=== PATIENT | male | born 1960 | race African-American/Black ===

== ENCOUNTER 2017-02-26 12:36 | Inpatient (IN) | payer MEDICAID ==
[~2017-02-26] VITALS: Ht 175.3 cm; Wt 60.8 kg
--- NOTE | 2017-02-26 12:49 | NUR ---
Patient transferred to bed 7 via wheelchair by tech. RN evaluating patient at bedside.
[2017-02-26 12:54] VITALS: BP 136/104
--- NOTE | 2017-02-26 13:12 | NUR ---
57/M BIB SISTER C/O N/V & ABD PAIN X 2 DAYS. HX OF DIVERTICOLITIS & REPAIR HERNIA & COLOSTOMY 2 WK AGO [place] . AAOX4 WITH EVEN AND UNSTEADY GAIT, AMBULATED WITH CANE; LUNGS CLEAR BL; PT DENIES ANY FEVER, CP, SOB, OR COUGH AT THIS TIME; PATIENT STATES PAIN OF 0/10 AT THIS TIME; PATIENT POSITIONED FOR COMFORT; HOB ELEVATED; BEDRAILS UP X2; BED DOWN. ER MD MADE AWARE OF PT STATUS.
--- NOTE | 2017-02-26 13:12 | NUR ---
Note undone in [facility] - 02/26/17 at 1534 by [email or web address] 57/M LEANN STOKES C/O N/V & ABD PAIN X 2 DAYS. HX COLOSTOMY . AAOX4 WITH EVEN AND STEADY GAIT; LUNGS CLEAR BL; HR EVEN AND REGULAR; PT DENIES ANY FEVER, CP, SOB, OR COUGH AT THIS TIME; PATIENT STATES PAIN OF 0/10 AT THIS TIME; VSS; PATIENT POSITIONED FOR COMFORT; HOB ELEVATED; BEDRAILS UP X2; BED DOWN. JOANNE HAWKINS MADE AWARE OF PT STATUS. Addendum: 02/26/17 at 1410 by [email or web address] Amendment undone in [facility] 02/26/17 at 1534 by [email or web address] PT HAS ABD SURGERY WITH COLOSTOMY X 2 WKS AGO
[2017-02-26] MEDS ORDERED: ONDANSETRON 4 MG/2 ML VIAL IVP ONE (13:20)
--- NOTE | 2017-02-26 13:20 | NUR ---
PT C/O ABD PAIN & N/V . NOTIFIED DR JOSEPH.
--- NOTE | 2017-02-26 13:29 | NUR ---
Patient being evaluated by DR JOSEPH at bedside.
--- NOTE | 2017-02-26 13:30 | NUR ---
Dr. Campos evaluating patient at bedside.
[2017-02-26] MEDS ORDERED: METOCLOPRAMIDE 10 MG/2 ML INJ VIAL IVP ONE (13:35)
[2017-02-26] MEDS ORDERED: NACL 0.9% 1,000 ML IV ONE ×2 (13:35→16:55)
--- NOTE | 2017-02-26 13:39 | NUR ---
EKG AT BEDSIDE.
--- NOTE | 2017-02-26 13:40 | NUR ---
LAB AT BEDSIDE
--- NOTE | 2017-02-26 13:44 | NUR ---
Dr. Campos re-evaluating patient at bedside.
[2017-02-26] MEDS ORDERED: MORPHINE SULFATE 4 MG/ML SYR IVP ONE ×2 (13:45→16:55)
--- NOTE | 2017-02-26 14:07 | NUR ---
PT TO CT VIA SG ACCOMPANIED BY EXPLOSIVE ORDNANCE TECHNICIAN
--- NOTE | 2017-02-26 14:07 | NUR ---
PT TAKEN TO CT VIA GUISABELLA,ACCOMPANIED BY [employer]ER [employer].
[2017-02-26 14:16] LABS: BASOPHILS # (AUTO) 0.2 K/uL (0.00-0.22); BASOPHILS % (AUTO) 2.3 % (0.0-2.0); EOSINOPHILS # (AUTO) 0.3 K/uL (0-0.4); EOSINOPHILS % (AUTO) 3.2 % (0.0-4.0); HEMATOCRIT 38.3 % (36-52); HEMOGLOBIN 12.2 g/dL (12.0-18.0); LYMPHOCYTES # (AUTO) 0.6 K/uL (2.0-11.5); LYMPHOCYTES % (AUTO) 7.1 % (20.5-51.1); MEAN CORPUSCULAR HEMOGLOBIN 31 pg (27-31); MEAN CORPUSCULAR HGB CONC 32 g/dL (33-37); MEAN CORPUSCULAR VOLUME 97 fL (80-94); MONOCYTES # (AUTO) 0.1 K/uL (0.8-1.0); MONOCYTES % (AUTO) 0.8 % (1.7-9.3); NEUTROPHILS # (AUTO) 7.3 K/uL (1.8-7.7); NEUTROPHILS % (AUTO) 86.6 % (42.2-75.2); PLATELET COUNT (AUTO) 630 K/uL (140-450); RED BLOOD CELL COUNT(AUTO) 3.95 MIL/uL (4.20-6.10); RED CELL DISTRIBUTION WIDTH 14.5 % (11.6-13.7); WHITE BLOOD COUNT (AUTO) 8.5 K/uL (4.8-10.8)
[2017-02-26 14:27] LABS: APPEARANCE,URINE CLEAR (CLEAR); BILIRUBIN,URINE NEGATIVE (NEGATIVE); BLOOD, URINE NEGATIVE (NEGATIVE); LEUKOCYTE ESTERASE ,URINE NEGATIVE (NEGATIVE); NITRITE, URINE NEGATIVE (NEGATIVE); UGLUCOSE NEGATIVE (NEGATIVE)
[2017-02-26 14:28] LABS: COLOR,URINE STRAW (YELLOW)
[2017-02-26 14:35] LABS: ANION GAP 11.7 (8-16); CARBON DIOXIDE 31.5 mmol/L (21-32); CREATININE 1.1 mg/dL (0.7-1.3); POTASSIUM 3.2 mmol/L (3.5-5.1)
--- NOTE | 2017-02-26 14:39 | NUR ---
SISTER PHONE NO [phone] Addendum: 02/26/17 at 1531 by MED1 ZEYAD HEBERT
[2017-02-26 14:42] LABS: ALBUMIN 3.7 g/dL (3.4-5.0); TOTAL BILIRUBIN 0.5 mg/dL (0.0-1.0)
[2017-02-26] MEDS ORDERED: POTASSIUM CHLORIDE 20% 40 MEQ/15 ML UDC PO ONE (14:45)
[2017-02-26 14:50] LABS: PROTHROMBIN TIME 10.8 secs (10.8-13.4)
--- NOTE | 2017-02-26 15:01 | NUR ---
Patient returned from CT scan. RN re-evaluating patient at bedside.
--- NOTE | 2017-02-26 15:01 | NUR ---
PT BACK FROM CT.
--- NOTE | 2017-02-26 15:24 | NUR ---
RECEIVED LAB RESULT : LACTIC ACID 2.1. NOTIFIED DR JOSEPH. Addendum: 02/26/17 at 1525 by [email or web address] Patient STS HX OF HTN BUT DIDN'T TAKE ANY MED AT HOME. PT C/O HEADACHE PAIN /10 AT THIS TIME. appears to be resting comfortably in bed. BP 211/117. Respirations even and unlabored. NOTIFIED DR JOSEPH. WILL CONTINUE TO MONITOR.
[2017-02-26 15:35] LABS: BARBITURATE, URINE NEG. ng/ml (NEG <=200); BENZODIAZEPINE, URINE NEG. ng/mL (NEG <=200); CANNABINOID, URINE POS. ng/mL (NEG <=50); COCAINE, URINE POS. ng/mL (NEG <=300); OPIATE, URINE NEG. ng/mL (NEG <=2000); PHENCYCLIDINE SCREEN,URINE NEG. ng/mL (NEG <=25)
[2017-02-26] MEDS ORDERED: hydrALAZINE 20 MG/ML VIAL IVP ONE ×2 (15:40→16:55)
[2017-02-26] MEDS: NACL 0.9% 1,000 ML IV SCH (15:47)
[2017-02-26] MEDS ORDERED: HYDROcodone/APAP 7.5/325 MG 1 TAB PO PRN (15:50)
[2017-02-26] MEDS ORDERED: ONDANSETRON 4 MG/2 ML VIAL IVP PRN (15:50)
--- NOTE | 2017-02-26 15:55 | NUR ---
T 100.3, BP 192/[address] JOSEPH. Patient appears to be resting comfortably in bed. WILL CONTINUE TO MONITOR.
[2017-02-26] MEDS ORDERED: ACETAMINOPHEN EXTRA STRENGTH 500 MG TAB PO ONE (16:05)
[2017-02-26] MEDS ORDERED: ACETAMINOPHEN EXTRA STRENGTH 500 MG TAB ONE (16:17)
[2017-02-26] MEDS ORDERED: NACL 0.9% 1,000 ML IV SCH (16:20)
[2017-02-26 16:50] LABS: AMYLASE 256 U/L (25-115)
[2017-02-26 16:51] LABS: FREE T4 (FREE THYROXINE) 1.06 ng/dL (0.76-1.46); THYROID STIMULATING HORMONE 4.12 uIU/mL (0.34-3.74)
[2017-02-26 17:03] LABS: LACTATE DEHYDROGENASE 236 U/L (85-227)
--- NOTE | 2017-02-26 17:22 | NUR ---
Patient appears to be SLEEPING comfortably in bed. BP 149/93 P 117/MINS. Respirations even and unlabored.WILL CONTINUE TO MONITOR.
--- NOTE | 2017-02-26 17:31 | NUR ---
Patient will be admitted to care of DR DAVIS. Admited to TELE. Will go to room. Belongings list completed. Report to 105B .
--- NOTE | 2017-02-26 17:31 | NUR ---
GAVE REPORT TO NASREEN TO
[2017-02-26 18:00] VITALS: BP 155/102
--- NOTE | 2017-02-26 18:00 | NUR ---
RECEIVED PATIENT ER. PATIENT SEDATED. IV NOTED AND INTACT. NO SIGNS OR SYMPTOMS OF ACUTE DISTRESS NOTED. CALL LIGHT WITHIN REACH. ATTEMPTED TO ORIENT PATIENT TO ROOM. WILL CONTINUE TO MONITOR.
--- NOTE | 2017-02-26 19:28 | NUR ---
ENDORSED PLAN OF CARE TO PM RN. PATIENT STABLE. SAFETY MEASURES ENSURED. CALL LIGHT WITHIN REACH.
--- NOTE | 2017-02-26 19:29 | NUR ---
RECEIVED REPORT FROM DAY NURSE. PT IN STABLE CONDITION. PT IS AAOX4, PT IS ON RA, PT HAS IV TO R AC 20 G, INFUSING WELL, DRY AND INTACT. RESPIRATIONS ARE EVEN AND UNLABORED/ BOWEL SOUNDS PRESENT. PT HAS COLOSTOMY BAG IN PLACE, DRY AND INTACT. INITIAL ASSESSMENT COMPLETED. PLAN OF CARE DISCUSSED WITH PT, REINFORCEMENT NEEDED. ALL SAFETY PRECAUTIONS MET, CALL LIGHT WITHIN REACH, WILL CONTINUE TO MONITOR.
[2017-02-26 20:00] VITALS: BP 182/122
--- NOTE | 2017-02-26 20:10 | NUR ---
PTS B/P CHECKED, B/P 182/122. DR SHAFFER NOTIFIED OF B/P. METOPROLOL GIVEN PER MD ORDERS. ALL SAFETY PRECAUTIONS MET, CALL LIGHT WITHIN REACH, WILL CONTINUE TO MONITOR.
[2017-02-26] MEDS: METOPROLOL 25 MG TAB PO SCH (20:24)
[2017-02-26] MEDS: DOCUSATE SODIUM 100 MG GELCAP PO SCH (20:25)
--- NOTE | 2017-02-26 21:30 | NUR ---
PTS B/P REASSESSED. B/P IS NOW 135/86. NO S/S OF DISTRESS NOTED. PT RESTING COMFORTABLY IN BED. ALL SAFETY PRECAUTIONS MET, CALL LIGHT WITHIN REACH, WILL CONTINUE TO MONITOR.
[2017-02-26] MEDS ORDERED: ACETAMINOPHEN 325 MG TAB PO PRN (22:00)
--- NOTE | 2017-02-26 22:30 | NUR ---
DR. SHAFFER ,RESIDENT MADE AWARE THAT PT SAID OK TO GET PNA VACCINE. HE SAID WILL HAVE TO ASK PT AGAIN.
--- NOTE | 2017-02-26 23:17 | NUR ---
PTS IV WAS PULLED OUT. NEW IV STARTED IN THE LEFT UPPER ARM 22G, PATENT, INFUSING WELL, INTACT.
[2017-02-27] VITALS: BP 135/86
--- NOTE | 2017-02-27 00:15 | NUR ---
CHECKED IN ON PT. PT RESTING COMFORTABLY IN BED NO S/S OF DISTRESS NOTED. ALL SAFETY PRECAUTIONS MET, CALL LIGHT WITHIN REACH. WILL CONTINUE TO MONITOR.
[2017-02-27] MEDS: NACL 0.9% 1,000 ML IV SCH ×2 (01:27→11:47)
--- NOTE | 2017-02-27 02:30 | NUR ---
PT SITTING UP WATCHING TV IN BED. RESPIRATIONS EVEN AND UNLABORED. NO C/O PAIN. ALL SAFETY PRECAUTIONS MET, CALL LIGHT WITHIN REACH, WILL CONTINUE TO MONITOR.
[2017-02-27 04:00] VITALS: BP 139/94
--- NOTE | 2017-02-27 04:16 | NUR ---
APPLIED SCD MACHINE TO BLE ORDERED. PT MADE AWARE OF THE BENEFITS. VERBALIZED UNDERSTANDING.
--- NOTE | 2017-02-27 06:30 | NUR ---
PT RESTING COMFORTABLY IN BED. NO S/S OF DISTRESS NOTED. CALL LIGHT IN REACH, ALL SAFETY PRECAUTIONS MET.
[2017-02-27 06:59] LABS: ANION GAP 10.5 (8-16); CARBON DIOXIDE 29.2 mmol/L (21-32); POTASSIUM 3.7 mmol/L (3.5-5.1)
[2017-02-27 07:02] LABS: BASOPHILS # (AUTO) 0.3 K/uL (0.00-0.22); BASOPHILS % (AUTO) 3.9 % (0.0-2.0); EOSINOPHILS # (AUTO) 0.1 K/uL (0-0.4); HEMATOCRIT 34.2 % (36-52); HEMOGLOBIN 11.1 g/dL (12.0-18.0); LYMPHOCYTES # (AUTO) 1.4 K/uL (2.0-11.5); LYMPHOCYTES % (AUTO) 18.7 % (20.5-51.1); MEAN CORPUSCULAR HEMOGLOBIN 32 pg (27-31); MEAN CORPUSCULAR HGB CONC 32 g/dL (33-37); MEAN CORPUSCULAR VOLUME 98 fL (80-94); MONOCYTES # (AUTO) 0.8 K/uL (0.8-1.0); NEUTROPHILS % (AUTO) 66.4 % (42.2-75.2); PLATELET COUNT (AUTO) 541 K/uL (140-450); RED CELL DISTRIBUTION WIDTH 14.1 % (11.6-13.7); WHITE BLOOD COUNT (AUTO) 7.6 K/uL (4.8-10.8)
[2017-02-27 07:13] LABS: CHOL/HDL RATIO 3.1 (1-4.5); MAGNESIUM 1.8 mg/dL (1.8-2.4); PHOSPHORUS 4.1 mg/dL (2.5-4.9)
--- NOTE | 2017-02-27 07:23 | NUR ---
ENDORSED PLAN OF CARE TO DAY NURSE, PT IN STABLE CONDITION. NO S/S OF DISTRESS NOTED. CALL LIGHT WITHIN REACH
--- NOTE | 2017-02-27 07:24 | NUR ---
RECEIVED REPORT FROM NIGHT NURSE. PT IS AWAKE AND ALERT IV ACCESS IN ASYMPTOMATIC AND PATENT. NO SIGNS OF ACUTE DISTRESS. COLOSTOMY BAG ON LEFT QUADRANT. PLAN OF CARE DISCUSSED, PT VERBALIZED UNDERSTANDING. BED ON LOW POSITION, BILATERAL HALF SIDE RAIL UP, CALL LIGHT WITHIN REACH. WILL CONTINUE TO MONITOR.
--- NOTE | 2017-02-27 08:15 | NUR ---
PATIENT HAS BEEN SCREENED AND CATEGORIZED MODERATE NUTRITION RISK. PATIENT WILL BE SEEN WITHIN 3-5 DAYS OF ADMISSION. 03/01/17-03/03/[address]
[2017-02-27] MEDS: DOCUSATE SODIUM 100 MG GELCAP PO SCH ×2 (08:44→21:15)
[2017-02-27] MEDS: METOPROLOL 25 MG TAB PO SCH ×2 (08:44→21:14)
[2017-02-27] MEDS: HYDROmorphone 1 MG/ML AMP IVP PRN ×2 (08:50→15:00)
[2017-02-27 08:57] VITALS: BP 159/98
--- NOTE | 2017-02-27 09:25 | NUR ---
PT SLEEPING, NO SIGNS OF ACUTE DISTRESS. BED IN LOW POSITION WITH BILATERAL HALF SIDE RAILS UP, CALL LIGHT WITHIN REACH, WILL CONTINUE TO MONITOR.
--- NOTE | 2017-02-27 11:15 | NUR ---
PT RESTING IN BED, SHOWING NO SIGNS OF ACUTE DISTRESS. BED IN LOW POSITION, BILATERAL HALF SIDE RAILS UP, CALL LIGHT WITHIN REACH, WILL CONTINUE TO MONITOR.
[2017-02-27 12:00] VITALS: BP 149/90
--- NOTE | 2017-02-27 12:10 | NUR ---
COLOSTOMY BAG CHANGED, PT TOLERATED WELL. STOMA RED, MINOR SKIN IRRITATION AROUND STOMA. CLEANED STOMA AND SURROUNDING TISSUE WITH NS.
--- NOTE | 2017-02-27 13:08 | NUR ---
CM NOTE INITIAL REVIEW FAXED TO [facility] [phone] CHANCE Ruiz PH [phone] [phone]
--- NOTE | 2017-02-27 13:27 | NUR ---
Clinical Review faxed to [facility]
--- NOTE | 2017-02-27 13:50 | NUR ---
PT IS RESTING IN BED, TALKING ON THE PHONE. NO SIGNS OF ACUTE DISTRESS, BED ON LOW POSITION, BILATERAL HALF SIDE RAILS UP, CALL LIGHT WITHIN REACH. WILL CONTINUE TO MONITOR.
--- NOTE | 2017-02-27 15:45 | NUR ---
PT IS SITTING UP RIGHT IN BED, SHOWING NO SIGNS OF ACUTE DISTRESS, BED IN LOW POSITION, BILATERAL HALF SIDE RAILS UP, CALL LIGHT WITHIN REACH . WILL CONTINUE TO MONITOR.
[2017-02-27 16:00] VITALS: BP 126/66
--- NOTE | 2017-02-27 17:45 | NUR ---
PT WALKING AROUND UNIT, SHOWING NO SIGNS OF ACUTE DISTRESS, STEADY GAIT.
--- NOTE | 2017-02-27 19:25 | NUR ---
ENDORSED PT TO NIGHT NURSE FOR CONTINUITY OF CARE. PT AWAKE AND ALERT, NO SIGNS OF ACUTE DISTRESS. BED IN LOW POSITION, CALL LIGHT WITHIN REACH.
--- NOTE | 2017-02-27 19:26 | NUR ---
RECEIVED REPORT FROM DAY NURSE, PT IN STABLE CONDITION, NO S/S OF DISTRESS NOTED. PT IS AAOX4, PT IS ON RA, IV TO LEFT UPPER ARM 20 G, PATENT, INTACT, INFUSING WELL. RESPIRATIONS EVEN AND UNLABORED. COLOSTOMY BAG DRY AND INTACT. INITIAL ASSESSMENT COMPLETED, PLAN OF CARE DISCUSSED WITH PT, PT VERBALIZED UNDERSTANDING. ALL SAFETY PRECAUTIONS MET, CALL LIGHT WITHIN REACH, WILL CONTINUE TO MONITOR.
[2017-02-27 20:00] VITALS: BP 159/84
--- NOTE | 2017-02-28 00:30 | NUR ---
KEPT PT NPO AFTER MN FOR HIDA SCAN . PT MADE AWARE.
[2017-02-28] MEDS: NACL 0.9% 1,000 ML IV SCH ×3 (00:33→17:39)
[2017-02-28 00:57] VITALS: BP 198/90
[2017-02-28] MEDS: hydrALAZINE 20 MG/ML VIAL IVP PRN ×2 (01:02→08:10)
--- NOTE | 2017-02-28 01:02 | NUR ---
BLOOD PRESSURE WAS CHECKED 198/90, MANUAL ON THE RT ARM. MEDICATED WITH APRESOLINE 10 MG IVP ORDERED. WILL CONTINUE TO MONITOR.
[2017-02-28] MEDS ORDERED: METOCLOPRAMIDE 10 MG/2 ML INJ VIAL IVP PRN (01:10)
--- NOTE | 2017-02-28 01:46 | NUR ---
PT STATED JOAQUIM DOES NOT WORK FOR HIM, PAGED DR SHAFFER TO MAKE AWARE, DR SHAFFER ORDERED REGLAN. MEDICATION ADMINISTERED PER ORDERS. ALL SAFETY PRECAUTIONS MET, CALL LIGHT WITHIN REACH, WILL CONTINUE TO MONITOR.
[2017-02-28 03:55] VITALS: BP 185/110
--- NOTE | 2017-02-28 03:56 | NUR ---
DR. SHAFFER IN TO SEE PT. PT STATES HE IS FEELING SICK WITH TROUBLE BREATHING. PTS VITALS ARE STABLE, PT O2 SAT IS 100%. PT GOING FOR HIDA SCAN IN AM.
[2017-02-28] MEDS ORDERED: KETOROLAC 30 MG/ML VIAL IVP ONE (04:05)
[2017-02-28] MEDS ORDERED: PROMETHAZINE 25 MG/ML VIAL IVP ONE (04:05)
--- NOTE | 2017-02-28 04:48 | NUR ---
PT GIVEN PHENERGAN AND TORADOL PER DR REYNOSO ORDERS, WILL CONTINUE TO MONITOR.
--- NOTE | 2017-02-28 05:04 | NUR ---
PT IS ASLEEP. NO S/S OF ANY DISCOMFORT NOR PAIN NOTED AT THIS TIME.
--- NOTE | 2017-02-28 07:20 | NUR ---
ENDORSED PLAN OF CARE TO DAY NURSE, AKHIL DOWNEY, FOR CONTINUITY OF CARE. PT IN STABLE CONDITION, CALL LIGHT WITHIN REACH.
--- NOTE | 2017-02-28 07:21 | NUR ---
RECEIVED REPORT FROM THE TOBACCO FEEDER CATCHER NURSE AT BEDSIDE FOR CONTINUITY OF CARE. PT IS RESTING. 57YO/MALE, [place]. PT IS HOMELESS. PT IS AAOX 4. INTRODUCED MYSELF AND UPDATED THE BOARD. HE STATES HE IS NOT FEELING WELL. C/O OF PAIN. V/S: 220/130 CHECKED MANUALLY D/T AUTOMATIC WOULD NOT READ. CHECKED 3X. SKIN FERNANDEZ, HE HAS AN ABDOMINAL SURGICAL WOUND W/ [place]. HE HAD SURGERY 3 WEEKS AGO. PT ALSO HAS HAS A COLOSTOMY BAG. OTHERWISE, SKIN IS INTACT. SURGICAL SITE, NO SIGNS OF INFECTION. IV TO HIS L UA, 22G NS INFUSING AT 100ML/HR. WILL BE BACK WITH MORNING MEDS. WILL SPEAK TO MD SKINNER HIGH BP. PT DOES HAVE PRN HYDRALAZINE IVP FOR BP OVER 180.
[2017-02-28 08:00] VITALS: BP 220/130
[2017-02-28] MEDS: METOPROLOL 25 MG TAB PO SCH ×2 (08:06→20:25)
[2017-02-28] MEDS: LISINOPRIL 5 MG TAB PO SCH (08:06)
[2017-02-28] MEDS: HYDROmorphone 1 MG/ML AMP IVP PRN ×3 (08:10→20:31)
--- NOTE | 2017-02-28 08:20 | NUR ---
ADMINISTERED MORNING MEDS INCLUDING HYDRALAZINE IVP AND DILAUD 01/25. PT TOLERATED WELL. WILL NEED TO REASSESS PT'S BP. WILL CONTINUE TO MONITOR PT.
[2017-02-28] MEDS: DOCUSATE SODIUM 100 MG GELCAP PO SCH ×2 (08:42→20:30)
--- NOTE | 2017-02-28 09:10 | NUR ---
REASSESSED BP 180/110. HR OF 88. PT IS SLEEPING. NO SIGNS OF DISTRESS. PT IS TO HAVE HIDA SCAN TODAY. WILL CONTINUE TO MONITOR PT.
--- NOTE | 2017-02-28 09:44 | NUR ---
CM NOTE INITIAL REVIEW FAXED TO [facility] [phone] CHANCE Ruiz PH [phone] [phone]
--- NOTE | 2017-02-28 10:24 | NUR ---
PT SLEEPING. NO SIGNS OF DISTRESS. STILL WAITING ON HIDA SCAN. WILL CONTINUE TO MONITOR PT.
--- NOTE | 2017-02-28 11:50 | NUR ---
PT SLEEPING. NO SIGNS OF DISTRESS. WOKE UP PT TO DO V/S. PT IS WENT BACK TO SLEEP. V/S WITHIN NORMAL RANGE. WILL CONTINUE TO MONITOR PT.
[2017-02-28 12:00] VITALS: BP 130/90
--- NOTE | 2017-02-28 13:32 | NUR ---
PT RESTING. IV PUMP BEEPING. FLUSHED HIS LINE. NOW FUNCTIONING PROPERLY. PT C/O OF PAIN. WILL MEDICATE.
[2017-02-28 14:59] LABS: BASOPHILS % (AUTO) 0.8 % (0.0-2.0); EOSINOPHILS # (AUTO) 0.1 K/uL (0-0.4); EOSINOPHILS % (AUTO) 1.5 % (0.0-4.0); HEMATOCRIT 39.4 % (36-52); LYMPHOCYTES # (AUTO) 0.7 K/uL (2.0-11.5); LYMPHOCYTES % (AUTO) 13.1 % (20.5-51.1); MEAN CORPUSCULAR HEMOGLOBIN 32 pg (27-31); MEAN CORPUSCULAR HGB CONC 33 g/dL (33-37); MEAN CORPUSCULAR VOLUME 97 fL (80-94); MONOCYTES # (AUTO) 0.1 K/uL (0.8-1.0); MONOCYTES % (AUTO) 2.6 % (1.7-9.3); NEUTROPHILS # (AUTO) 4.7 K/uL (1.8-7.7); PLATELET COUNT (AUTO) 547 K/uL (140-450); RED BLOOD CELL COUNT(AUTO) 4.08 MIL/uL (4.20-6.10); RED CELL DISTRIBUTION WIDTH 13.7 % (11.6-13.7); WHITE BLOOD COUNT (AUTO) 5.6 K/uL (4.8-10.8)
[2017-02-28 15:09] LABS: ANION GAP 9.7 (8-16); CREATININE 0.9 mg/dL (0.7-1.3); POTASSIUM 3.7 mmol/L (3.5-5.1)
--- NOTE | 2017-02-28 15:50 | NUR ---
REMOVED 28 RICO AND CLEANED THE AREA WITH NORMAL SALINE. PLASTIC SURGERY NURSE. CLEANED AND REPLACED COLOSTOMY BAG. PT SKIN WAS IRRITATED AND ITCHY. CLEANED WITH SOAP AND WATER, PATTED DRY, APPLIED SUREPREP. PT TOLERATED WELL.
[2017-02-28 16:00] VITALS: BP 140/92
--- NOTE | 2017-02-28 17:08 | NUR ---
LATE ENTRY: PT AMBULATED AROUND THE HALLS EARLIER, RECREATION ESTABLISHMENT MANAGER CHANGED ALL LINENS. ATE THE CLEAR LIQ DIET. NOW, PT IS SLEEPING COMFORTABLY. WILL CONTINUE TO MONITOR PT.
--- NOTE | 2017-02-28 18:00 | NUR ---
PT IS SLEEPING. DINNER TRAY HERE. PLACED ON THE SIDE TABLE. WILL KEEP IT WARM FOR HIM UNTIL HE WAKES UP.
--- NOTE | 2017-02-28 19:10 | NUR ---
ENDORSED PT TO THE WAITER/WAITRESS HEAD NURSE AT BEDSIDE FOR CONTINUITY OF CARE. PT IN STABLE CONDITION.
--- NOTE | 2017-02-28 19:11 | NUR ---
RECEIVED PATIENT REPORT AT BEDSIDE FROM MORNING NURSE. PATIENT IS AWAKE, ALERT AND ORIENTED. NO SIGNS AND SYMPTOMS OF DISTRESS NOTED. IV SITE NOTED ON LEFT UPPER ARM. IVF INFUSING WELL. COLOSTOMY BAG NOTED ON LEFT ABDOMEN. SURGICAL WOUND NOTED. BED IN LOWEST POSITION, SIDE RAILS UP AND CALL LIGHT WITHIN REACH.
[2017-02-28 20:00] VITALS: BP 117/70
--- NOTE | 2017-02-28 22:00 | NUR ---
CHECKED ON PATIENT. PATIENT IS ASLEEP IN BED. NO SIGNS AND SYMPTOMS OF DISTRESS NOTED. CALL LIGHT WITHIN REACH. WILL CONTINUE TO MONITOR.
[2017-03-01] VITALS: BP 117/54
[2017-03-01] MEDS: HYDROmorphone 1 MG/ML AMP IVP PRN ×2 (00:48→09:19)
--- NOTE | 2017-03-01 01:00 | NUR ---
CHECKED ON PATIENT. PATIENT IS ASLEEP IN BED. NO SIGNS AND SYMPTOMS OF DISTRESS NOTED. BED IN LOWEST POSITION, SIDE RAILS UP, CALL LIGHT WITHIN REACH. WILL CONTINUE TO MONITOR.
[2017-03-01 04:00] VITALS: BP 121/69
[2017-03-01] MEDS: NACL 0.9% 1,000 ML IV SCH (04:12)
[2017-03-01 06:34] LABS: BASOPHILS # (AUTO) 0.2 K/uL (0.00-0.22); BASOPHILS % (AUTO) 4.1 % (0.0-2.0); EOSINOPHILS % (AUTO) 0.8 % (0.0-4.0); HEMATOCRIT 33.9 % (36-52); HEMOGLOBIN 10.9 g/dL (12.0-18.0); LYMPHOCYTES # (AUTO) 1.5 K/uL (2.0-11.5); LYMPHOCYTES % (AUTO) 29.2 % (20.5-51.1); MEAN CORPUSCULAR HEMOGLOBIN 31 pg (27-31); MEAN CORPUSCULAR HGB CONC 32 g/dL (33-37); MEAN CORPUSCULAR VOLUME 97 fL (80-94); MONOCYTES # (AUTO) 0.4 K/uL (0.8-1.0); MONOCYTES % (AUTO) 7.8 % (1.7-9.3); NEUTROPHILS # (AUTO) 3.1 K/uL (1.8-7.7); NEUTROPHILS % (AUTO) 58.1 % (42.2-75.2); PLATELET COUNT (AUTO) 466 K/uL (140-450); RED BLOOD CELL COUNT(AUTO) 3.51 MIL/uL (4.20-6.10); RED CELL DISTRIBUTION WIDTH 13.5 % (11.6-13.7); WHITE BLOOD COUNT (AUTO) 5.2 K/uL (4.8-10.8)
[2017-03-01 06:48] LABS: ANION GAP 11.1 (8-16); CARBON DIOXIDE 26.7 mmol/L (21-32); CREATININE 1.1 mg/dL (0.7-1.3); POTASSIUM 3.8 mmol/L (3.5-5.1)
[2017-03-01 06:56] LABS: MAGNESIUM 1.8 mg/dL (1.8-2.4); PHOSPHORUS 3.5 mg/dL (2.5-4.9)
--- NOTE | 2017-03-01 07:24 | NUR ---
PATIENT REPORT GIVEN AT BEDSIDE TO MORNING NURSE. PATIENT IS IN STABLE CONDITION
--- NOTE | 2017-03-01 07:25 | NUR ---
RECEIVED REPORT FROM GAS TESTER NURSE AT BEDSIDE FOR CONTINUITY OF CARE. PT IS AWAKE AND ORIENTED. INTRODUCED SELF AND UPDATED BOARD. WILL CONTINUE TO MONITOR.
[2017-03-01] MEDS ORDERED: MAG SULF 2000 MG/WATER PREMIX 50 ML IV SCH (08:08)
[2017-03-01] MEDS ORDERED: METO25TA PO (08:21)
[2017-03-01] MEDS ORDERED: ATOR20TA40 PO (08:21)
[2017-03-01] MEDS ORDERED: METO-485 PO (08:21)
[2017-03-01] MEDS ORDERED: LISI-424 PO (08:21)
[2017-03-01 08:48] VITALS: BP 145/82
[2017-03-01] MEDS ORDERED: ATORVASTATIN 20 MG TAB PO SCH (09:00)
[2017-03-01] MEDS: DOCUSATE SODIUM 100 MG GELCAP PO SCH (09:00)
[2017-03-01] MEDS: METOPROLOL 25 MG TAB PO SCH (09:18)
[2017-03-01] MEDS: LISINOPRIL 5 MG TAB PO SCH (09:19)
--- NOTE | 2017-03-01 09:19 | NUR ---
ADMINISTERED SCHEDULED MEDICATIONS. STARTED MAG-RIDER. PT REFUSED COLACE AND STATED PAIN 01/25. ADMINISTERED DILAUDID 0.5MG. PT TOLERATED MEDS WELL. PT IS SLEEPING IN BED NOW WITH NO OTHER COMPLAINTS. WILL CONTINUE TO MONITOR.
--- NOTE | 2017-03-01 10:34 | NUR ---
CM NOTE CONCURRENT REVIEW FAXED TO [facility] [phone] CHANCE Ruiz PH [phone]
--- NOTE | 2017-03-01 11:15 | NUR ---
PT REFUSED TO WAIT FOR ORDER FOR SHOWER AND FOR IV CATHETER SITE REMOVAL. PT LEFT ROOM AND WALKED TO USE SHOWER ON UNIT. SECURITY WAS CALLED AND ESCORTED PT BACK TO ROOM AFTER HE WAS DONE IN SHOWER. PT STATED HE WANTED TO GET OUT OF HERE. MADE PT AWARE THAT HE WILL BE D/C TODAY.
--- NOTE | 2017-03-01 11:45 | NUR ---
PT REFUSED TO SIGN D/C PAPERWORK AND REFUSED TO HAVE PICTURES TAKEN OF INCISION ON ABDOMEN. D/C INSTRUCTIONS WERE GIVEN AND PACKET HANDED TO PT. PT IS GETTING DRESSED AND READY TO LEAVE UNIT. IV CATHETER REMOVED AND TELE MONITOR REMOVED.
--- NOTE | 2017-03-01 12:05 | NUR ---
PT LEFT UNIT TO GO HOME. AMBULATED ACCOMPANIED BY RN. PT LEFT WITH ALL PERSONAL BELONGINGS. ID BAND REMOVED. PT IN STABLE CONDITION.
--- NOTE | 2017-03-01 13:39 | NUR ---
Social Service Note: Late entry for 02/28/17: I met with patient at bedside. Per patient, he is currently homeless. He stated he has been homeless for 6 months. He reported his monthly income is $900. He stated he only has $300 at this time. He reported he does not receive food stamps. He stated he does not have a pcp and does not want to follow up with a physician. I emphasized the importance of following up with a physician. However, he once again stated he did not want to follow up with a physician. I provided him with a list of homeless shelters, room and boards, food [place], and other services/agencies for individuals without an income or low income. He stated he was going to make his own living arrangements using community resources provided to him. I also provided him with community resources for counseling/mental health services. He requested I speak with his window caser/advocate Britt from [employer] . I called and spoke with Britt. She asked me if I knew when patient would be discharge and to where he would be discharge. I explained to her I had provided patient with community resources and he had chosen to make his own living arrangements. Patient refused to sign homeless waiver, in chart.
== END 2017-03-01 12:05 | disposition home or self-care (01) | DRG 774 ==
LOC: MED 12:36 → MTU 16:06
PROVIDERS: ADMIT Family Medicine; ATTEND Family Medicine
DX: F12.20 Cannabis dependence, uncomplicated (principal); F14.20 Cocaine dependence, uncomplicated; N17.0 Acute kidney failure with tubular necrosis; G92 Toxic encephalopathy; K85.90 Acute pancreatitis without necrosis or infection, unspecified; R18.8 Other ascites; E87.2 Acidosis; R65.10 Systemic inflammatory response syndrome (SIRS) of non-infectious origin without acute organ dysfunction; R11.10 Vomiting, unspecified; K80.20 Calculus of gallbladder without cholecystitis without obstruction; F32.9 Major depressive disorder, single episode, unspecified; E83.42 Hypomagnesemia; D50.9 Iron deficiency anemia, unspecified; F25.1 Schizoaffective disorder, depressive type; I10 Essential (primary) hypertension; E87.6 Hypokalemia; E11.9 Type 2 diabetes mellitus without complications; E78.5 Hyperlipidemia, unspecified; Z93.3 Colostomy status; Z59.0 Homelessness; Z90.49 Acquired absence of other specified parts of digestive tract; Z71.51 Drug abuse counseling and surveillance of drug abuser
CPT/HCPCS: 36415; 71010; 76705; 80048; 80053; 80305; 81003; 82150; 82607; 82728; 82746; 83036; 83540; 83605; 83615; 83690; 83735; 84100; 84439; 84443; 84484; 85025; 85045; 85610; 85730; 87040; 87081; 93005; 96361; 96374; 96375; 99285; J0360; J1170; J1885; J2270; J2405; J2550; J2765; J3475; J7030; Q0092; Q9967